=== PATIENT | male | born 1980 | race Caucasian/White ===

== ENCOUNTER 2017-10-13 17:17 | Emergency (ER) | payer OTHER ==
[2017-10-13] MEDS ORDERED: Promethazine 25 MG/ML SDV IM ONE (18:16)
[2017-10-13] MEDS ORDERED: Ketorolac 30 MG/ML SDV IM ONE (18:16)
[2017-10-13 18:44] LABS: ANION GAP 11.7; CHLORIDE,CL 102 mmol/L (101-111); SODIUM,NA 135 mmol/L (135-145)
--- NOTE | 2017-10-15 08:19 | EDM.PDOC ---
Scribed by Maryann Espinosa 10/15/17817 for Cal Westfall MD ED HPI GENERAL MEDICAL PROBLEM - General Chief Complaint: Headache Stated Complaint: SEVERE HEADACHE,THROWING UP, LUPUS PT Time Seen by Provider: 10/13/17 18:10 Source of Information: Reports: Patient, RN, RN Notes Reviewed History Limitations: Reports: No Limitations - History of Present Illness INITIAL COMMENTS - FREE TEXT/NARRATIVE: Patient presents stating that 3 hours ago had a throbbing headache. He took ibuprofen without relief. He threw up 3 to 4 times. Also has fatigue and chills. Three hours ago the vision in his left eye was blurry but is normal now. He has sharp pain on right side of head. Positive photophobia pain is located behind eye. 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 Also has a history of shingles and post-herpetic neuralgia. Onset: Today Duration: Getting Worse Location: Reports: Head Quality: Reports: Ache Severity: Severe Improves with: Reports: None Worsens with: Reports: None Associated Symptoms: Reports: No Other Symptoms Treatments [employer]: Reports: Acetaminophen Headache Pain Score (Numeric/FACES): 10 - Related Data Allergies Allergy/AdvReac Type Severity Reaction Status Date / Time MECHELLE Inhibitors Allergy Cannot Verified 10/13/17 17:56 Remember amoxicillin Allergy Rash Verified 10/13/17 17:56 azithromycin Allergy Rash Verified 10/13/17 17:56 benazepril Allergy Cannot Verified 10/13/17 17:56 Remember ciprofloxacin Allergy Rash Verified 10/13/17 17:56 clindamycin Allergy Rash Verified 10/13/17 17:56 hydroxychloroquine Allergy Cannot Verified 10/13/17 17:56 Remember Penicillins Allergy Rash Verified 10/13/17 17:56 Quinolones Allergy Cannot Verified 10/13/17 17:56 Remember Sulfa (Sulfonamide Allergy Rash Verified 10/13/17 17:56 Antibiotics) Home Meds: Home Meds . [No Known Home Meds] 10/13/17 [History] Past Medical History HEENT History: Reports: Impaired Vision Musculoskeletal History: Reports: Arthritis, Other (See Below) Other Musculoskeletal History: Lupus Psychiatric History: Reports: Anxiety, Bipolar, Depression, Panic Attack Immunologic History: Reports: SLE Dermatologic History: Reports: Other (See Below) Other Dermatologic History: skin sensitive to sun. - Infectious Disease History Infectious Disease History: Reports: MRSA Social & Family History - Family History Neurological: Reports: Migraines Other Neurological Family History: sister - Tobacco Use Smoking Status *Q: Never Smoker Second Hand Smoke Exposure: No - Caffeine Use Caffeine Use: Reports: Soda - Recreational Drug Use Recreational Drug Use: No ED ROS GENERAL - Review of Systems Review Of Systems: ROS reveals no pertinent complaints other than HPI. - Physical Exam Exam: See Below Exam Limited By: No Limitations General Appearance: Alert, WD/WN, No Apparent Distress Eye Exam: Bilateral Eye: Normal Inspection Ears: Normal External Exam, Normal Canal, Hearing Grossly Normal, Normal TMs Nose: Normal Inspection, Normal Mucosa, No Blood Throat/Mouth: Normal Inspection, Normal Lips, Normal Teeth, Normal Gums, Normal Oropharynx, Normal Voice, No Airway Compromise Head Exam: Atraumatic, Normocephalic Respiratory/Chest: No Respiratory Distress, Lungs Clear, Normal Breath Sounds, No Accessory Muscle Use, Chest Non-Tender Cardiovascular: Normal Peripheral Pulses, Regular Rate, Rhythm, No Edema, No Gallop, No JVD, No Murmur, No Rub GI/Abdominal: Normal Bowel Sounds, Soft, Non-Tender, No Organomegaly, No Distention, No Abnormal Bruit, No Mass Neuro Exam (Abbreviated): Alert, Oriented, CN II-XII Intact, Normal Cognition, Normal Gait, Normal Reflexes, No Motor/Sensory Deficits Back Exam: Normal Inspection, Full Range of Motion, NT Extremities: Normal Inspection, Normal Range of Motion, Non-Tender, No Pedal Edema, Normal Capillary Refill Psychiatric: Normal Affect, Normal Mood Skin Exam: Warm, Dry, Intact, Normal Color, No Rash, Other (flushed cheeks) Course - Vital Signs Last Recorded V/S: Last Vital Signs Temp 37.3 C 10/13/17 20:14 Pulse 78 10/13/17 20:14 Resp 16 10/13/17 20:14 BP 126/84 10/13/17 20:14 Pulse Ox 100 10/13/17 20:14 - Orders/Labs/Meds Labs: Laboratory Tests 10/13/17 10/13/17 10/13/17 Range/Units 18:17 18:17 18:17 WBC 8.1 (5.0-10.0) 10^3/uL RBC 5.57 (4.6-6.2) 10^6/uL Hgb 17.5 (14.0-18.0) g/dL Hct 49.4 (40.0-54.0) % MCV 88.7 (80-100) fL MCH 31.4 (27.0-34.0) pg MCHC 35.4 H (33.0-35.0) g/dL Plt Count 398 (150-450) 10^3/uL Neut % (Auto) 74.3 (42.2-75.2) % Lymph % (Auto) 14.3 L (20.5-50.1) % [place] % (Auto) 7.6 (2-8) % Eos % (Auto) 3.4 H (1.0-3.0) % Baso % (Auto) 0.4 (0.0-1.0) % Sodium 135 (135-145) mmol/L Potassium 3.7 (3.6-5.0) mmol/L Chloride 102 (101-111) mmol/L Carbon Dioxide 25.0 (21.0-31.0) mmol/L Anion Gap 11.7 BUN 18 (7-18) mg/dL Creatinine 0.8 (0.6-1.3) mg/dL Est Cr Clr Drug Dosing 120.49 mL/min Estimated GFR (MDRD) > 60 BUN/Creatinine Ratio 22.50 Glucose 104 (74-105) mg/dL Calcium 8.5 (8.4-10.2) mg/dl Total Bilirubin 0.8 (0.2-1.0) mg/dL AST 24 (10-42) IU/L ALT 36 (10-60) IU/L Alkaline Phosphatase 51 (42-121) IU/L C-Reactive Protein 0.6 (0.0-1.3) mg/dL Total Protein 6.5 L (6.7-8.2) g/dl Albumin 3.5 (3.2-5.5) g/dl Globulin 3.0 Albumin/Globulin Ratio 1.17 Influenza A and B: Negative. Rapid strep: Negative. Meds: Medications Discontinued Medications Generic Name Dose Route Start Last Admin Trade Name Freq PRN Reason Stop Dose Admin Ketorolac Tromethamine 30 mg 10/13/17 18:16 10/13/17 18:38 Toradol IM 05/08/18 18:17 30 mg ONETIME ONE Administration Promethazine HCl 25 mg 10/13/17 18:16 10/13/17 18:36 Phenergan IM 10/13/17 18:17 25 mg ONETIME ONE Administration Departure - Departure Time of Disposition: 19:31 Disposition: Home, Self-Care 01 Condition: Fair Clinical Impression: Gastroenteritis Migraine Qualifiers: Migraine type: unspecified Status migrainosus presence: without status migrainosus Intractability: not intractable Qualified Code(s): G43.909 - Migraine, unspecified, not intractable, without status migrainosus - Discharge Information Instructions: Migraine Headache, [id number], Viral Gastroenteritis, Adult, [id number] Forms: ED Department Discharge Additional Instructions: RX: Promethazine 25mg. *DO NOT DRIVE while under the influence of this medication. Follow up with primary physician if not improving. I have read and agree with the documentation that has been completed regarding this visit. By signing this record, I attest that the documentation was completed in my physical presence and is an accurate record of the encounter.
== END 2017-10-13 20:17 | disposition home or self-care (01) ==
LOC: DL.ED 17:17
DX: G43.009 Migraine without aura, not intractable, without status migrainosus (principal); K52.9 Noninfective gastroenteritis and colitis, unspecified; Z88.1 Allergy status to other antibiotic agents; Z88.8 Allergy status to other drugs, medicaments and biological substances; Z88.0 Allergy status to penicillin; Z88.2 Allergy status to sulfonamides
CPT/HCPCS: 36415; 80053; 85025; 86140; 87081; 87430; 87804; 96372; 99284; J1885; J2550